=== PATIENT | female | born 1985 | race American Indian/Alaskan Native ===

== ENCOUNTER 2021-12-11 07:33 | Day surgery (SDC) | payer OTHER ==
[~2021-12-11 07:33] MED LIST: ACETAMINOPHEN 500 MG TAB PO SCH; CELECOXIB 200 MG CAP PO NR; GABAPENTIN 300 MG CAP PO NR; LACTATED RINGERS 1,000 ML IV SCH; MIDAZOLAM 2 MG/2 ML INJ IV NR; SCOPOLAMINE TRANSDERMAL PATCH 72 HR TD NR
[2021-12-11] MEDS ORDERED: HYDROmorphone 0.5 MG/0.5 ML INJ IV PRN (08:43)
[2021-12-11] MEDS ORDERED: ONDANSETRON 4 MG/2 ML INJ IV PRN (08:43)
[2021-12-11] MEDS ORDERED: oxyCODONE /ACETAMINOPHEN 5-325MG TAB PO PRN (08:43)
--- NOTE | 2021-12-11 08:43 | Anesthesia Consultation ---
Anesthesia Consult and Med Hx Date of service: 12/11/21 - Airway Anesthetic Teeth Evaluation: Good ROM Head & Neck: Adequate Mental/Hyoid Distance: Adequate Mallampati Class: Class I Intubation Access Assessment: Good - Pre-Operative Health Status ASA Pre-Surgery Classification: ASA2 Proposed Anesthetic Plan: General - Pulmonary Hx Smoking: Yes (THC only) Hx Respiratory Symptoms: No - Cardiovascular System Hx Hypertension: No - Central Nervous System CVA: No - Endocrine Hx Renal Disease: No Hx Liver Disease: No Hx Insulin Dependent Diabetes: No Hx Non-Insulin Dependent Diabetes: No Hx Thyroid Disease: No - Other Systems Hx Substance Use: Yes (daily THC) - Additional Comments Anesthesia Medical History Comments: No prior GA. No FHx anesthetic complications.
--- NOTE | 2021-12-11 08:43 | Anesthesia Day of Surgery ---
Anesthesia Day of Surgery - Day of Surgery Patient Examined: Yes Patient H&P Reviewed: Yes Patient is NPO: Yes
[2021-12-11] MEDS ORDERED: ONDANSETRON 4 MG/2 ML INJ ONE (09:06)
[2021-12-11] MEDS ORDERED: ROCURONIUM 50 MG/5 ML INJ IV ONE (09:06)
[2021-12-11] MEDS ORDERED: HYDROmorphone 1 MG/1 ML INJ ONE (09:06)
[2021-12-11] MEDS ORDERED: LIDOCAINE MPF (2%) 20 MG/1 ML VIAL 5 ML ONE (09:06)
[2021-12-11] MEDS ORDERED: propofoL 200 MG/20 ML VIAL IV ONE (09:07)
[2021-12-11] MEDS ORDERED: ceFAZolin/Water 2 GM/20 ML 2 GM/20 ML SYRINGE IV ONE (09:55)
[2021-12-11] MEDS ORDERED: LIDOCAINE (2%) 20 MG/1 ML VIAL 20 ML MDV INFILTRATI ONE ×2 (10:11→10:51)
[2021-12-11] MEDS ORDERED: dexAMETHasone 20 MG/5 ML VIAL ONE (10:26)
[2021-12-11] MEDS ORDERED: SODIUM CHLORIDE 0.9% IRR 1,000 ML BOTTLE IR ONE (10:52)
[2021-12-11] MEDS ORDERED: KETOROLAC 30 MG/1 ML INJ ONE (11:11)
[2021-12-11] MEDS ORDERED: NEOSTIGMINE 10MG/10 ML INJ MDV ONE (11:11)
[2021-12-11] MEDS ORDERED: GLYCOPYRROLATE 0.4 MG/2 ML INJ ONE (11:11)
[2021-12-11] MEDS ORDERED: LACTATED RINGERS 1,000 ML ONE (11:16)
--- NOTE | 2021-12-11 11:53 | Procedure Note ---
Date of procedure: 12/11/21 Pre-op diagnosis: multiparous, desires permanent sterilization Post-op diagnosis: same Procedure: Mini-laparotomy, bilateral salpingectomy After the risks, benefits and alternatives of the procedure were discussed, pt signed consents and was taken to the OR via stretcher. Time out done and preop abx given pt was given general anesthesia, prepped and draped in usual sterile fashion. Suprapubic incision approx 5cm was done and taken sharply to the fascia below and electrocautery used to stopped small bleeders. The fascia was incised and rectus muscles superiorly only. The rectus muscle in the midline and the incision extended upwards with good visualization of the the bladder. Pt had redundant bowel therefore steep [place] position done and bowel packed away with 2 moist tagged lap sponges. The right tube was visualized and same followed to it's fimbriated end and the avascular portion of the mesosalpinx entered and the distal tubal segment with cyst of mortgagni excised and free ends doubly ligated using 0-vicryl suture. Excellent hemostasis achieved. Attention turned to the left and no tube initially seen due to retroverted uterus adhesions to left adnexa. Finally left tube identified however unable to exteriorize to dense adhesions. Ligasure device therefore requested and same used to remove the left distal tubal segment with another cyst of morgagni uncomplicated. Again hemostasis achieved and remains excellent. Lap sponges then removed from the abdomen and count correct by circulating staff. The anterior peritoneum was closed with 3-0 vicryl and the rectus muscle above reapproximated with 0-vicryl in a running fashion for both. The subcutaneous tissue copiously irrigated with normal saline and reapproximated with 3-0 vicryl in a running fashion and the skin closed with 4-0 monocryl in a subcutaneous fashion. Sponge lap and instrument counts x3 were correct and pt extubated without difficulty and taken to recovery room stable. Pt was given subcutaneously 10cc of lidocaine 2% plain for comfort. The tafoya cath was removed in the OR prior to going to the recovery room Pathology: right and left tubal segments with cysts of morgani and fimbriae attached EBL: minimal less than 10cc INTAKE: 1000cc crystalloids OUTPUT: 400cc clear urine at the end of the procedure Findings: bilateral tubes with cysts of morgani. Left adnexa with adhesions. Both ovar ies wnl. Retroverted normal size uterus and redundant bowel Anesthesia: GETA Surgeon: GRACE NAVARRO Estimated blood loss: minimal (less than 10cc) Pathology: list (right and left distal tubal segments with fimbriae and cysts of morgani attached) Specimen disposition: to lab Condition: stable Disposition: same day
--- NOTE | 2021-12-11 11:59 | Discharge Summary ---
Providers - Providers Attending physician: GRACE NAVARRO Primary care physician: [facility]TER Hospitalization Reason for admission: other (multiparous, desires permanent sterilization. Declined all other modes or approach of surg) Procedure: bilateral tubal ligation (via mini-lap) Incision: normal, intact Discharge diagnosis: other (multiparous, desires permanent sterilization via mini-lap) Hospital course: Same day surgery for elective mini-lap bilateral sterilization. Same done uncomplicated and pt discharged home on the same day Condition at discharge: Good Disposition: 01 HOME / SELF CARE / HOMELESS - Discharge Diagnoses (1) Status post bilateral salpingectomy Status: Acute Plan - Provider Discharge Summary Additional instructions: [] Smoking cessation referral if applicable(refer to patient education folder for contact #) [] Refer to [facility] Booklet Call your doctor immediately for: * Fever > 100.5 * Heavy vaginal bleeding ( >1 pad per hour) * Severe persistent headache * Shortness of breath * Reddened, hot, painful area to leg or breast * Drainage or odor from incision. * Keep incision clean and dry at all times and follow doctor's instructions regarding bathing/showering - Follow up plan Follow up: PRIMARY CARE, [Primary Care Provider] - 7 Days
[2021-12-11 13:45] VITALS: BP 127/70
--- NOTE | 2021-12-11 14:13 | Post Anesthesia Evaluation ---
- Post Anesthesia Evaluation Patient Participated: Yes Airway Patent: Yes Stable Respiratory Function: Yes Nausea/Vomiting: No Temp > 96.8F: Yes Pain Manageable: Yes Adequeate Hydration: Yes Anesthesia Complications: No
== END 2021-12-11 13:30 | disposition home or self-care (01) ==
LOC: OR 07:33
PROVIDERS: ATTEND Obstetrics & Gynecology
DX: Z30.2 Encounter for sterilization (principal); D64.9 Anemia, unspecified; Z91.040 Latex allergy status; Z90.79 Acquired absence of other genital organ(s); Z72.89 Other problems related to lifestyle; Z98.890 Other specified postprocedural states; Z79.899 Other long term (current) drug therapy
CPT/HCPCS: 58700; 81025; 88302; J0690; J1100; J1170; J1815; J1885; J2405; J2704; J2710; J3490; J7120; J2250